=== PATIENT | male | born 1965 | race Caucasian/White ===

== ENCOUNTER → 2022-07-01 | Outpatient (CLI) | payer OTHER, SELFPAY ==
--- NOTE | 2022-07-01 10:30 | RAD_ITS ---
EXAM: XR LUMBOSACRAL SPINE, 2 OR 3 VIEWS CLINICAL INDICATION: ARTHRITIS TECHNIQUE: Frontal and lateral views of the lumbar spine and sacrum. This report was created using [employer] report [employer] technology. COMPARISON: None. FINDINGS: VERTEBRAE: Marked levoscoliosis of lumbar spine centered at L1-L2 measuring approximately 40 degrees. Bilateral facet arthropathy in the lower lumbar spine. Preserved vertebral body height. No fracture. No spondylolisthesis. DISC SPACES: Multilevel degenerative disc disease. GASTROINTESTINAL TRACT: Unremarkable as visualized. Included bowel gas pattern is non-obstructive. RAD/Lumbar Spine 2 or 3 Views IMPRESSION: 1. Marked levoscoliosis of lumbar spine centered at L1-L2 measuring approximately 40 degrees. 2. Multilevel degenerative disc disease. 3. Bilateral facet arthropathy in the lower lumbar spine. Electronically Signed: Tomas Blakely MD at 5:34 EDT ,
== END | disposition home or self-care (01) ==
LOC: RAD 10:19
DX: M13.80 Other specified arthritis, unspecified site (principal)
CPT/HCPCS: 72100